=== PATIENT | male | born 1965 | race Caucasian/White ===

== ENCOUNTER 2019-02-28 12:28 | Emergency (ER) | payer MEDICAID ==
[~2019-02-28] VITALS: Ht 165.1 cm; Wt 74.5 kg
[~2019-02-28 12:28] MED LIST: SULF1TAB42 PO
[2019-02-28 13:38] VITALS: BP 116/79
== END 2019-02-28 13:44 | disposition home or self-care (01) ==
LOC: EMS 12:30
DX: F10.229 Alcohol dependence with intoxication, unspecified (principal); F11.90 Opioid use, unspecified, uncomplicated; F15.90 Other stimulant use, unspecified, uncomplicated; Z86.19 Personal history of other infectious and parasitic diseases; Z59.0 Homelessness